=== PATIENT | female | born 1985 | race Caucasian/White ===

== ENCOUNTER 2024-11-12 12:11 | Emergency (ER) | payer BC ==
[~2024-11-12] VITALS: Ht 167.6 cm; Wt 95.3 kg
[2024-11-12] MEDS ORDERED: WELLBUTRIN XL300 MG PO (13:35)
[2024-11-12] MEDS ORDERED: EFFEXOR XR150 MG PO (13:36)
[2024-11-12] MEDS ORDERED: 0.9 % SODIUM CHLORIDE 1,000 ML IV STA (13:49)
[2024-11-12] MEDS ORDERED: ONDANSETRON HCL 2 MG/ML VIAL IV STA (13:49)
[2024-11-12] MEDS ORDERED: FAMOTIDINE/PF 20 MG in 0.9 % SODIUM CHLORIDE 8 ML IV PUSH STA ×2 (13:50→18:49)
[2024-11-12 14:47] LABS: HEMATOCRIT 40.9 % (36.0-45.00); HEMOGLOBIN 13.8 g/dL (12.0-15.00); MEAN CELL VOLUME 89.7 fL (80.00-100.00); MEAN CORPUSCULAR HEMOGLOBIN 30.2 pg (27.00-32.0); MEAN CORPUSCULAR HGB CONC 33.7 g/dl (32.0-36.0); PLATELET COUNT 327 K/uL (150-450); RED BLOOD COUNT 4.56 M/uL (4.00-6.00)
[2024-11-12 15:05] LABS: CREATININE SERUM 0.86 mg/dL (0.55-1.02); GFR 73.46; POTASSIUM 4.17 mEq/L (3.5-5.1)
[2024-11-12 17:03] LABS: PH,URINE 5.5 (5.0-8.0); URINE APPEARANCE Cloudy; URINE BILIRRUBIN Negative (NEGATIVE); URINE BLOOD Large; URINE COLOR Yellow; URINE GLUCOSE Negative (NEGATIVE); URINE KETONE Trace (NEGATIVE); URINE LEUKOCYTE Negative; URINE NITRATE Negative; URINE PROTEIN Trace (NEGATIVE); URINE UROBILINOGEN 0.2 E.U./dl
[2024-11-12 17:07] LABS: URINE BACTERIA 2535.9 uL (0.0-1933); URINE EPITHELIAL CELLS 74.4 uL (0.0-38.8); URINE RBC 196.6 uL (0.0-20.8); URINE WBC 39.7 uL (0.0-23.2)
[2024-11-12 17:10] LABS: URINE CAST 0.14 uL (0.0-1.40)
[2024-11-12] MEDS ORDERED: HYOSCYAMINE SULFATE 0.125 MG TAB.SUBL SL ONE (19:00)
[2024-11-12] MEDS ORDERED: METRONIDAZOLE/SODIUM CHLORIDE 500 MG/100 ML PIGGYBACK IV ONE (19:00)
[2024-11-12] MEDS ORDERED: PEPCID AC20 MG PO (19:23)
[2024-11-12] MEDS ORDERED: ONDANSETRON ODT8 MG PO (19:23)
[2024-11-12] MEDS ORDERED: METRONIDAZOLE500 MG PO (19:23)
== END 2024-11-12 20:06 | disposition home or self-care (01) ==
LOC: ER 12:13
PROVIDERS: Emergency Medicine
DX: K52.89 Other specified noninfective gastroenteritis and colitis (principal); Z88.8 Allergy status to other drugs, medicaments and biological substances; F41.8 Other specified anxiety disorders